=== PATIENT | male | born 1990 | race Caucasian/White ===

== ENCOUNTER 2022-04-06 21:13 | Emergency (ER) | payer MEDICAID, OTHER ==
[~2022-04-06 21:13] MED LIST: ALBU8.5H6 IH; AMOX500T2 PO; ARPZ10T; BENZ100C18 PO; BNZT1T PO; CHLO1TAB79 PO; DIVA500T7 PO; DOCU-250 PO; DVL500TEC PO; ESCT10T; FLUP10TA PO; HALO100V4 IM; HYDR-4226 PO; LEVO500T69 PO; LEVO750T PO; LITH300C PO; MECL25TA56 PO; MELA1TAB10 PO; ONDA8TAB9 PO; PRD20T PO; QUET300T19 PO; QUET50TA21 PO; RSP2T PO; RSP50S IM; SULF1TAB38 PO; TRZ50T; ZLP10T PO
== END 2022-04-06 21:45 | disposition left against medical advice (07) ==
LOC: ER 21:16 → EDBD 21:16 → ER 21:45
DX: R69 Illness, unspecified (principal)